=== PATIENT | female | born 1980 | race Asian ===

== ENCOUNTER 2024-07-27 01:28 | Emergency (ER) | payer BC, SELFPAY ==
[2024-07-27] VITALS (8 sets, daily range): BP systolic 98–182; BP diastolic 56–114; PULSE 54–78; RESP 11–19; TEMP 36.3–36.6; O2SAT 93–100; BMI 24.9
--- NOTE | 2024-07-27 01:31 | EKG_ITS ---
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
--- NOTE | 2024-07-27 02:00 | XR_ITS ---
Examination: AP chest single view TECHNIQUE: AP portable semiupright chest single view Date and time: July 27, 2024 0250 hours Comparison November 15, 2023 INDICATIONS: Chest pain radiating to the back today. FINDINGS: Normal heart size. Lungs are clear. Osseous structures are intact IMPRESSION: No active disease
--- NOTE | 2024-07-27 02:27 | PC.NURSE ---
pt resting quietly. appears anxious. states pain 9 out of 10 at the moment. will speak to MD about pain relief options.
--- NOTE | 2024-07-27 02:29 | PD.EDCHEST ---
ED Chest Pain RME/HPI General Chief Complaint: Chest Pain Stated Complaint: CHEST PAIN RADIATES TO BACK Time Seen by Provider: 07/27/24 02:28 Source: patient, RN notes reviewed and old records reviewed Arrival date/time: 07/27/24 01:28 Mode of arrival: ambulatory Limitations: no limitations RME / HPI RME / HPI narrative: 44-year-old with history of seasonal allergies, asthma with no intubations in the past MD complaint: chest pain (11 PM so far it) Onset (ago): hour(s) (4 hours a) Pain location: epigastric Severity: mild Severity scale (1-10): 2 Quality: sharp Pain radiation: back Relieving factors: leaning forward Exacerbating factors: supine Context: other (No new meds, immobilization, recent travel, or new medications. No history of DVT or pulmonary embolism.) Associated symptoms: nausea and cough (Dry cough, nasal congestion, nasal discharge clear any) Treatments prior to arrival chest pain: other (11 PM took Tums.-, 1115 took Tylenol with no relief.) Related Data On Oral Contraceptives: No Home Medications ?Medication ?Instructions ?Recorded ?Confirmed docusate sodium 100 mg capsule 100 mg PO QDAY 05/12/18 05/12/18 (Colace) vitamins-iron fumarate 27 1 tab PO QDAY 05/12/18 05/12/18 mg iron-folic acid 0.8 mg tablet ( Vitamin) Previous Rx's ?Medication ?Instructions ?Recorded famotidine 20 mg tablet (Pepcid) 20 mg PO QDAY #30 tabs 10/24/20 ondansetron HCl 4 mg tablet 4 mg PO Q8H PRN nausea and 10/24/20 (Zofran) vomiting #20 tabs pantoprazole 40 mg tablet,delayed 40 mg PO QDAY #30 tabs 11/15/23 release (Protonix) Allergies Allergy/AdvReac Type Severity Reaction Status Date / Time No Known Allergies Allergy Verified 03/14/22 04:01 Review of Systems Review of Systems Systems Reviewed: All systems reviewed, normal except as documented ED Exam General Limitations: Present no limitations Course Course Course Narrative: Patient placed in the bed. Morphine is given. All labs are sent. Orders Category Date Time Status Bedside COVID-19 Antigen Test NOW Care 07/27/24 02:04 Active Bedside Influenza A&B Antigen Test NOW Care 07/27/24 02:04 Completed EKG (ED ONLY) *Do not use* NOW Care 07/27/24 01:32 Completed EKG (ED Only) Stat Exams 07/27/24 01:31 Draft XR chest 1V portable Stat Exams 07/27/24 02:00 Ordered CBC Stat Lab 07/27/24 02:00 Ordered CMP [Comprehensive Metabolic Panel] Stat Lab 07/27/24 02:00 Ordered Drug Screen,Urine Stat Lab 07/27/24 02:01 Ordered HCG,Qualitative Serum Stat Lab 07/27/24 02:00 Ordered Troponin I Stat Lab 07/27/24 02:00 Ordered UA [Urinalysis] Stat Lab 07/27/24 02:01 Ordered Vital Signs Vital signs: Vital Signs Temperature 97.9 F 07/27/24 01:39 Pulse Rate 65 07/27/24 01:39 Respiratory Rate 19 07/27/24 01:39 Blood Pressure 182/114 H 07/27/24 01:39 Pulse Oximetry (%) 100 07/27/24 01:39 Oxygen Delivery Method Room Air 07/27/24 01:39 Procedures -ED EKG Interpretation #1: Date of EK07/27/24 Time of EK:37 Interpretation: Interpreted by me Additional EKG comment: Sinus rhythm. Q wave in V2. No ST elevations or depressions. Rate 69, [place] interval 133. QTc is 407. No ST elevation CO. Chest Pain MDM Narrative MDM Narrative:: Differential diagnosis: Chest pain, pulmonary embolism, hypertensive urgency versus emergency, GERD, gallbladder disease, non-STEMI. Heart score: Discharge Plan Prescriptions/Referrals Prescriptions/Med Rec: No Action famotidine [Pepcid] 20 mg tablet 20 mg PO QDAY Qty: 30 0RF ondansetron HCl [Zofran] 4 mg tablet 4 mg PO Q8H PRN (Reason: nausea and vomiting) Qty: 20 0RF docusate sodium [Colace] 100 mg Capsule 100 mg PO QDAY Vitamin 27 mg iron- 0.8 mg Tablet 1 tab PO QDAY pantoprazole [Protonix] 40 mg tablet,delayed release (DR/EC) 40 mg PO QDAY Qty: 30 0RF Patient/Caregiver Discharge Instructions Print Language: Indian
--- NOTE | 2024-07-27 02:41 | XR_ITS ---
Examination: Abdomen sonogram, Limited Date and time of exam: July 27, 2024 0255 hours INDICATIONS: Epigastric pain beginning 11:00 PM last night Technique: Real-time vazquez scale transabdominal sonographic images of the upper abdomen obtained. Findings: Cholelithiasis, normal gallbladder wall Normal common bile ducts are 0.4 cm Pancreatic head 2.5 cm Liver 14.8 cm smooth contour and no focal liver lesions Normal hepatopedal portal venous flow Patent IVC IMPRESSION: Cholelithiasis
[2024-07-27 03:03] LABS: Basophils # (Auto) 0.1 Thou/mm3 (0.0-0.2); Basophils % (Auto) 1 % (0-2.5); Eosinophils # (Auto) 0.3 Thou/mm3 (0.0-0.5); Eosinophils % (Auto) 3 % (0-10); Hematocrit 37.2 % (36.0-46.0); Immature Granulocytes % (Auto) 0 % (0-0); Immature Granulocytes Auto 0.02 Thou/mm3 (0.00-0.00); Lymphocytes # (Auto) 3.4 Thou/mm3 (1.0-4.8); Lymphocytes % (Auto) 32 % (10-50); Mean Corpuscular HGB Conc 32.3 g/dl (31.0-37.0); Mean Corpuscular Hemoglobin 21.9 pg (25.0-35.0); Mean Corpuscular Volume 68 fL (80-100); Monocytes # (Auto) 0.8 Thou/mm3 (0.0-0.8); Monocytes % (Auto) 7 % (0-12); Neutrophils % (Auto) 57 % (37-80); Nucleated Red Blood Cell % 0 /100 WBC (0); Platelet Count 268 Thou/mm3 (140-440); RDW Standard Deviation 35.1 fL (36.4-46.3); Red Blood Count 5.48 Miln/mm3 (4.00-5.20); White Blood Count 10.6 Thou/mm3 (3.6-11.0)
[2024-07-27 03:23] LABS: D-Dimer < 250 ng/mL (<600)
[2024-07-27 03:30] LABS: Path Review Blood Smear Sent to Pathologist
[2024-07-27] MEDS: ONDANSETRON INJ 2 MG/ML INJ 2 ML 4 MG IVP (03:46)
[2024-07-27] MEDS: MORPHINE SULF INJ 10 MG/ML VIAL 4 MG IVP (03:47)
[2024-07-27] MEDS: ASPIRIN 81 MG CHEW 324 MG PO (03:48)
[2024-07-27 03:53] LABS: Alanine Aminotransferase 40 U/L (10-49); Albumin, Serum 4.4 gm/dL (3.5-5.0); Albumin/Globulin Ratio 1.3 (1.2-2.2); Alkaline Phosphatase 61 U/L (46-116); Anion Gap 9 (7-16); Aspartate Amino Transferase 26 U/L (0-34); BUN/Creatinine Ratio 10 Ratio (12-20); Bilirubin,Total 0.4 mg/dL (0.3-1.2); Blood Urea Nitrogen 9 mg/dL (9-23); Calcium 9.9 mg/dL (8.3-10.6); Calcium (Corrected) 9.9 mg/dL (8.5-10.1); Carbon Dioxide 27.2 mMol/L (20.0-31.0); Chloride 102 mMol/L (98-107); Creatinine (Component) 0.9 mg/dL (0.6-1.3); Estimated Creatinine Clearance 74.5 mL/min (>60); Globulin 3.3 gm/dL (2.3-3.5); Glucose 111 mg/dL (74-106); Osmolality,Calculated 275 (275-295); Potassium 3.7 mMol/L (3.4-5.1); Sodium 138 mMol/L (136-145); Total Protein 7.7 gm/dL (5.7-8.2); Troponin I < 0.002 ng/mL (0.0-0.045); eGFR > 60 See Note
[2024-07-27 04:33] LABS: Collection Type, Urine Clean Catch
--- NOTE | 2024-07-27 04:33 | PRELIM_ITS ---
Right upper quadrant abdominal ultrasound with Doppler and wave Doppler spectral analysis. July 27, 2024 at 0255 hours Clinical history:Epigastric pain. Technique: Grayscale and color flow images of the right upper quadrant are provided. Hepatic and portal veins were also imaged with color flow images. Comparison: No prior study is available for comparison. Findings: The liver is normal in echogenicity. No intrahepatic biliary ductal dilatation. Gallstones. No gallbladder wall thickening or pericholecystic fluid is demonstrated. The common bile duct is normal in caliber at 0.4 cm. The pancreas is unremarkable to the extent visualized. The portal vein is patent with hepatopetal flow normal wave Doppler spectral analysis. The hepatic veins are patent with normal wave Doppler spectral analysis. The inferior vena cava is patent with normal wave Doppler spectral analysis. Terry sign is not available at the time of this report. Impression: Gallstones without evidence of acute cholecystitis. Report Electronically Signed By: eHlio Davenport 07/27/2024 4:32:52 AM [EST]
[2024-07-27 04:39] LABS: Bilirubin,Urine Negative (Negative); Blood,Urine 1+ (Negative); Clarity,Urine Clear (Clear/Hazy); Color,Urine Lt-Yellow (Lt Yel-Yel); Glucose, Urine Negative (Negative); Ketones,Urine Negative (Negative); Leukocyte Esterase,Urine Positive (Negative); Nitrite,Urine Negative (Negative); Protein,Urine Negative (Neg - Trace); RBC,Urine 21 /hpf (0-3); Specific Gravity,Urine 1.025 (1.001-1.035); Squamous Epithelial Cell,Urine 5 /hpf (0-5); Urobilinogen,Urine Negative mg/dL (0.0-1.0); WBC,Urine 14 /hpf (0-5)
[2024-07-27 05:05] LABS: HCG,Qualitative Serum Negative
[2024-07-27 05:06] LABS: Amphetamine/Methamp Scrn,U Negative (Negative); Barbiturate Screen,Urine Negative (Negative); Benzodiazepines Screen,Urine Negative (Negative); Benzoylecgonine Screen, Ur Negative (Negative); Fentanyl Screen,Urine Negative (Negative); Opiate Screen,Urine Positive (Negative); THC Screen,Urine Negative (Negative)
[2024-07-27] MEDS: cefTRIAXone/D5w 1gm IV premix 1 GM/50 ML BAG IV (06:18)
--- NOTE | 2024-07-27 06:27 | PD.EDADDENDU ---
Emergency Room Addendum Addendum Narrative: 0600: Care assumed from Dr. Cool, the previous shift emergency physician. Past medical, surgical, social and family history reviewed. Vitals and home medications reviewed. I will assume the care of the patient at this time, pending delta trop and final disposition. Please refer to the emergency department record for history and examination from initial visit.? Physical exam by me shows patient under no acute distress at this time. 44 year old female with past medical history significant for asthma presents to the Emergency Department with complaint of chest pain, nonspecific. Delta trop came back negative, patient will be discharged to follow up with their PCP in 2 days. 0750: Patient remains clinically stable throughout the emergency department visit. Re-assessment at the time of disposition demonstrates that the patient is in no acute distress. We reviewed all the results, analysis, and treatment plans. Patient is amenable to discharge. Strict return precautions were outlined. Patient was discharged in stable condition. Diagnoses: -Nonspecific chest pain -History of asthma
[2024-07-27 06:32] LABS: Troponin I < 0.020 ng/mL (0.0-0.045)
[2024-07-27] MEDS: KETOROLAC INJ 30 MG/ML VIAL 15 MG IVP (06:43)
== END 2024-07-27 08:12 | disposition home or self-care (01) ==
PROVIDERS: Emergency Provider Emergency Medicine; PCP Family Medicine
DX: R07.89 Other chest pain (principal); J45.909 Unspecified asthma, uncomplicated; K80.20 Calculus of gallbladder without cholecystitis without obstruction
CPT/HCPCS: 36415; 71045; 76705; 80053; 80307; 81001; 84484; 84703; 85025; 85379; 87400; 87811; 93005; 96365; 96375; 99284; J0696; J1885; J2270; J2405; A9270

== ENCOUNTER 2024-10-14 20:15 | Emergency (ER) | payer BC, SELFPAY ==
[2024-10-14 21:10] VITALS: BP 169/94; PULSE 65; RESP 18; TEMP 36.9; O2SAT 96; BMI 24.9
--- NOTE | 2024-10-14 21:18 | XR_ITS ---
Examination: CT abdomen and pelvis without contrast. Coronal 3-D reconstructions. Sagittal 2-D reconstructions. Date and time of exam:October 14, 2024 1027 hours INDICATIONS: Left-sided flank pain beginning 2 days ago. CTDI: vol (mGy): 6.38 DLP: (mGycm): 725 Technique: Axial images of the abdomen have been obtained, 3 mm slice thickness Intravenous contrast material has not been administered. Low dose protocols were performed. One or more of the following dose reduction techniques were used; automated exposure control, adjustment of the mA and/or KV according to patient size, use of iterative reconstruction technique. Findings: No focal liver or splenic lesion Contracted gallbladder No pancreatic mass Thickening of the left adrenal gland No renal or ureteral calculi, no hydronephrosis 19 mm fat-containing umbilical hernia Normal appendix No bowel obstruction Anteverted uterus Urinary bladder wall thickening up to 6 mm Mild osteopenia IMPRESSION: No renal or ureteral calculi, no hydronephrosis. Normal appendix Cystitis pattern
--- NOTE | 2024-10-14 21:27 | PD.EDBACK ---
ED Back Injury Pain RME/HPI General Chief Complaint: Abdominal Pain Stated Complaint: LEFT FLANK PAIN Time Seen by Provider: 10/14/24 21:17 Arrival date/time: 10/14/24 20:15 44F with history of asthma presents to ED with 2 days of L flank pain. Patient denies dysuria and fall/trauma. Limitations: no limitations Related Data Home Medications ?Medication ?Instructions ?Recorded ?Confirmed docusate sodium 100 mg capsule 100 mg PO QDAY 05/12/18 05/12/18 (Colace) vitamins-iron fumarate 27 1 tab PO QDAY 05/12/18 05/12/18 mg iron-folic acid 0.8 mg tablet ( Vitamin) Previous Rx's ?Medication ?Instructions ?Recorded famotidine 20 mg tablet (Pepcid) 20 mg PO QDAY #30 tabs 10/24/20 ondansetron HCl 4 mg tablet 4 mg PO Q8H PRN nausea and 10/24/20 (Zofran) vomiting #20 tabs pantoprazole 40 mg tablet,delayed 40 mg PO QDAY #30 tabs 11/15/23 release (Protonix) cefuroxime axetil 500 mg tablet 500 mg PO BID 7 days #14 tabs 10/15/24 Allergies Allergy/AdvReac Type Severity Reaction Status Date / Time No Known Allergies Allergy Verified 10/14/24 20:16 Review of Systems Review of Systems Systems Reviewed: All systems reviewed, normal except as documented Constitutional Constitutional: Reports system reviewed and no additional complaints, except as documented, Denies fever(s) and Denies headache(s) ENT Ears, Nose, Mouth, and Throat: Denies disequilibrium and Denies headache(s) Cardiovascular Cardiovascular: Reports system reviewed and no additional complaints, except as documented, Denies chest pain and Denies dyspnea Respiratory Respiratory: Reports system reviewed and no additional complaints, except as documented, Denies cough and Denies dyspnea Gastrointestinal Gastrointestinal: Reports system reviewed and no additional complaints, except as documented, Denies abdominal pain, Denies nausea and Denies vomiting Genitourinary Genitourinary: Reports abnormal menses and Reports flank pain Neurologic Neurologic: Reports system reviewed and no additional complaints, except as documented, Denies confusion, Denies disequilibrium and Denies headache(s) Psychiatric Psychiatric: Denies confusion Past Medical History Past Medical History NEUROLOGIC: Negative Neurological Disorders CARDIAC: Negative Cardiac Disorders or Congestive Heart Failure RESPIRATORY: Positive Asthma; Negative Chronic Obstructive Pulmonary Disease (COPD) GASTROINTESTINAL: Positive Gastroesophageal Reflux Disease; Negative Gastrointestinal Disorders, Hepatitis or Colorectal Cancer GENITOURINARY: Negative Genitourinary Disorders, Renal Disease or Prostate Cancer REPRODUCTIVE: Negative Breast Cancer or Testicular Cancer MUSCULOSKELETAL: Negative Musculoskeletal Disorders or Bone Cancer ENDOCRINE: Negative Endocrine Disorders, Diabetes Mellitus Type 1 or Diabetes Mellitus Type 2 HEMATOLOGIC: Negative Blood Disorders OTHER HISTORY: Negative Hospitalization, Autoimmune Disease, Down Syndrome, Developmental Delay, Shingles, Falls, Blood Transfusions, Blood Transfusion Reaction, Anesthesia Reactions, Organ Transplant, Chemotherapy, Radiation Therapy, Hyperbaric Therapy, MRSA, VRSA, Vancomycin-Resistant Enterococci, Human Immunodeficiency Virus (HIV), Chicken Pox, Measles, Mumps, Rubella ([place] Measles), Pertussis, Clostridium Difficile, Breast Cancer, Cervical Cancer, Colorectal Cancer, Lung Cancer, Ovarian Cancer, Prostate Cancer or Testicular Cancer Family History FAMILY HISTORY: Positive Family Cardiac Disorders; Negative Family Psychiatric Problems, Family Respiratory Disorders, Family Gastrointestinal Problems, Family Cancer, Family Surgery or Family Anesthesia Reaction Surgical History SURGICAL: Negative Endocrine Surgery, Section or Organ Transplant Social History SMOKING STATUS: Never smoker SUBSTANCE USE: does not use ED Exam General Limitations: Present no limitations General appearance: Present alert and in no apparent distress Head Head exam: Present atraumatic Eye Eye exam: Present normal appearance, PERRL and EOMI ENT ENT exam: Present normal exam, normal oropharynx and mucous membranes moist Neck Neck exam: Present normal inspection, full ROM and trachea midline Chest Chest inspection: Present normal inspection and symmetric chest wall rise Respiratory Respiratory exam: Present normal lung sounds bilaterally Cardiovascular Cardiovascular exam: Present regular rate, normal rhythm and normal heart sounds Abdominal Exam Abdominal exam: Present soft and normal bowel sounds Extremities Exam Extremities exam: Present normal inspection and full ROM Back Exam Back exam: Present full ROM and CVA tenderness (L) Neurological Exam Neurological exam: Present alert, oriented X3 and CN II-XII intact Psychiatric Psychiatric exam: Present normal affect and normal mood Skin Skin exam: Present warm, dry, intact and normal color Course Quality Measures none Orders Category Date Time Status CT abdomen pelvis wo con Stat Exams 10/14/24 21:18 Completed CBC Stat Lab 10/14/24 22:17 Completed CMP [Comprehensive Metabolic Panel] Stat Lab 10/14/24 22:17 Completed HCG Qualitative,Urine Stat Lab 10/14/24 21:40 Completed Lipase Stat Lab 10/14/24 22:17 Completed Urinalysis, C/S if Indicated Stat Lab 10/14/24 21:40 Completed Urine Culture Stat Lab 10/14/24 21:40 Received [id number] [Rocephin] 1,000 mg Med 10/15/24 00:09 Discontinued Lidocaine 1% 20 ml [Xylocaine 1% 20 ML] 2.1 ml IM X1 Vital Signs Vital signs: Vital Signs Temperature 98.5 F 10/14/24 21:10 Pulse Rate 65 10/14/24 21:10 Respiratory Rate 18 10/14/24 21:10 Blood Pressure 169/94 H 10/14/24 21:10 Pulse Oximetry (%) 96 10/14/24 21:10 Oxygen Delivery Method Room Air 10/14/24 21:10 O2 at 96% on RA and WNLs Back Pain / Injury MDM Narrative MDM Narrative:: 44F with history of asthma presents to ED with 2 days of L flank pain. Patient denies dysuria and fall/trauma. Physical exam reveals some L CVA tenderness. Patient is afebrile, calm, and alert. CT no kidney stone. No leukocytosis. CMP unremarkable. UA suggests UTI. Meds and consumer credit counselor given. Patient data External records reviewed:: [facility] previous records Clinical information provided by:: patient Social determinants that could affect healthcare access:: none Patient has the following chronic illnesses:: none How is presenting disease/condition affected by chronic disease/condition?: no chronic disease Evaluation data The following diagnostics were reviewed and interpreted by me:: lab results and radiology exam(s) Lab and/or radiology exams considered but not ordered:: ordered Interpretation Summary: above Medications / Prescriptions Medications or Prescriptions considered but not ordered:: ordered Medication administrations:: Medication Administration History Discontinued Medications Ceftriaxone Sodium 1,000 mg/ (Lidocaine HCl 2.1 ml) 0 mg IM X1 ONE Stop: 10/15/24 00:10 Last Admin: 10/15/24 00:25 Dose: 1,000 mg Documented By: EF above Consultations Consultation(s) initiated? (list below): No Diagnosis Differential diagnosis back pain/injury: lumbar radiculopathy, sciatica, strain of lumbar region, renal colic, pyelonephritis, thoracic back pain, AAA and discitis Most likely diagnosis given after review of the tests above:: UTI Admission Indicated Admission indicated?: not indicated Admission Request Was there a request for admission?: No Disposition Plan Disposition Plan: Discharge Discharge Attestation Discharge Attestation: The patient and all family members were given an opportunity to ask questions and understood the discharge instructions. Discharge instructions specifically effects, indications for sooner follow up or return to the emergency department, and the expected course of current diagnosis. Patient condition: Stable Discharge Plan Plan Patient Disposition: HOME (Self Care) Discharge Disposition comment: Stable Prescriptions/Referrals Prescriptions/Med Rec: New cefuroxime axetil 500 mg tablet 500 mg PO BID 7 Days Qty: 14 0RF No Action famotidine [Pepcid] 20 mg tablet 20 mg PO QDAY Qty: 30 0RF ondansetron HCl [Zofran] 4 mg tablet 4 mg PO Q8H PRN (Reason: nausea and vomiting) Qty: 20 0RF docusate sodium [Colace] 100 mg Capsule 100 mg PO QDAY Vitamin 27 mg iron- 0.8 mg Tablet 1 tab PO QDAY pantoprazole [Protonix] 40 mg tablet,delayed release (DR/EC) 40 mg PO QDAY Qty: 30 0RF Referrals: Olga Yu MD [Primary Care Provider] - In 1 week Problem List Clinical Impression: UTI (urinary tract infection) Patient/Caregiver Discharge Instructions Education Materials: ED CYSTITIS Female Adult Additional Instructions: Please follow-up with PCP within 24-48 hours and return immediately if symptoms worsen. NSAIDs like ibuprofen tend to work better for this type of pain. Print Language: Maori Stand Alone Forms: Work/School Release, Patient Portal Info Letter PA/ANNIE Supervising Physician TONEY/ANNIE Supervising Physician: Dr. Marcial
[2024-10-14 22:14] LABS: Collection Type, Urine Clean Catch
[2024-10-14 22:19] LABS: Bilirubin,Urine Negative (Negative); Blood,Urine Trace (Negative); Clarity,Urine Clear (Clear/Hazy); Color,Urine Lt-Yellow (Lt Yel-Yel); Glucose, Urine Negative (Negative); Ketones,Urine Negative (Negative); Leukocyte Esterase,Urine Positive (Negative); Nitrite,Urine Negative (Negative); PH,Urine 6.5 (5.0-7.0); Protein,Urine Negative (Neg - Trace); RBC,Urine 4 /hpf (0-3); Specific Gravity,Urine 1.018 (1.001-1.035); Squamous Epithelial Cell,Urine 7 /hpf (0-5); Urobilinogen,Urine Negative mg/dL (0.0-1.0); WBC,Urine 25 /hpf (0-5)
[2024-10-14 22:40] LABS: Basophils # (Auto) 0.1 Thou/mm3 (0.0-0.2); Basophils % (Auto) 1 % (0-2.5); Eosinophils # (Auto) 0.3 Thou/mm3 (0.0-0.5); Eosinophils % (Auto) 2 % (0-10); Hematocrit 41.9 % (36.0-46.0); Hemoglobin 12.8 g/dL (12.0-16.0); Immature Granulocytes Auto 0.03 Thou/mm3 (0.00-0.00); Lymphocytes # (Auto) 3.0 Thou/mm3 (1.0-4.8); Lymphocytes % (Auto) 27 % (10-50); Mean Corpuscular HGB Conc 30.5 g/dl (31.0-37.0); Mean Corpuscular Hemoglobin 21.5 pg (25.0-35.0); Mean Corpuscular Volume 70 fL (80-100); Monocytes # (Auto) 0.7 Thou/mm3 (0.0-0.8); Monocytes % (Auto) 6 % (0-12); Neutrophils # (Auto) 7.1 Thou/mm3 (1.8-7.7); Neutrophils % (Auto) 64 % (37-80); Nucleated Red Blood Cell # 0.00 Thou/mm3 (0.00-0.00); Nucleated Red Blood Cell % 0 /100 WBC (0); Platelet Count 359 Thou/mm3 (140-440); RDW Standard Deviation 37.0 fL (36.4-46.3); Red Blood Count 5.95 Miln/mm3 (4.00-5.20); White Blood Count 11.1 Thou/mm3 (3.6-11.0)
[2024-10-14 22:42] LABS: Culture Indicated,Urine Yes
[2024-10-14 22:52] LABS: HCG Qualitative,Urine Negative
[2024-10-14 23:18] LABS: Alanine Aminotransferase 62 U/L (10-49); Albumin, Serum 5.0 gm/dL (3.5-5.0); Albumin/Globulin Ratio 1.5 (1.2-2.2); Alkaline Phosphatase 68 U/L (46-116); Anion Gap 9 (7-16); Aspartate Amino Transferase 77 U/L (0-34); BUN/Creatinine Ratio 13 Ratio (12-20); Bilirubin,Total 0.4 mg/dL (0.3-1.2); Blood Urea Nitrogen 10 mg/dL (9-23); Calcium 10.3 mg/dL (8.3-10.6); Calcium (Corrected) 10.3 mg/dL (8.5-10.1); Carbon Dioxide 25.7 mMol/L (20.0-31.0); Chloride 105 mMol/L (98-107); Creatinine (Component) 0.8 mg/dL (0.6-1.3); Estimated Creatinine Clearance 83.8 mL/min (>60); Globulin 3.3 gm/dL (2.3-3.5); Glucose 92 mg/dL (74-106); Osmolality,Calculated 278 (275-295); Potassium 3.9 mMol/L (3.4-5.1); Sodium 140 mMol/L (136-145); Total Protein 8.3 gm/dL (5.7-8.2); eGFR > 60 See Note
[2024-10-14 23:53] LABS: Lipase 26 U/L (12-53)
[2024-10-15] MEDS: cefTRIAXone 1,000 MG, LIDOCAINE 1% 20 ML 2.1 ML IM (00:25)
[2024-10-15 00:33] VITALS: BP 159/100; PULSE 77; RESP 16; TEMP 36.8; O2SAT 99
== END 2024-10-15 00:34 | disposition home or self-care (01) ==
PROVIDERS: Physician Assistant; Emergency Provider Emergency Medicine; PCP Family Medicine
DX: N39.0 Urinary tract infection, site not specified (principal); J45.909 Unspecified asthma, uncomplicated
CPT/HCPCS: 36415; 74176; 80053; 81001; 81025; 83690; 85025; 87086; 96372; 99283; J0696; J3490

== ENCOUNTER → 2024-12-08 | Outpatient (CLI) | payer BC, SELFPAY ==
[2024-12-08 15:07] LABS: Collection Type, Urine Clean Catch
[2024-12-08 16:58] LABS: Bacteria,Urine Rare; Bilirubin,Urine Negative (Negative); Blood,Urine Negative (Negative); Clarity,Urine Clear (Clear/Hazy); Color,Urine Colorless (Lt Yel-Yel); Glucose, Urine Negative (Negative); Ketones,Urine Negative (Negative); Nitrite,Urine Negative (Negative); PH,Urine 7.0 (5.0-7.0); Protein,Urine Negative (Neg - Trace); RBC,Urine 1 /hpf (0-3); Specific Gravity,Urine 1.007 (1.001-1.035); Squamous Epithelial Cell,Urine 8 /hpf (0-5); Urobilinogen,Urine Negative mg/dL (0.0-1.0); WBC,Urine 1 /hpf (0-5)
[2024-12-08 17:09] LABS: Leukocyte Esterase,Urine Negative (Negative)
== END | disposition home or self-care (01) ==
LOC: SLDO 14:57
PROVIDERS: PCP Family Medicine; Referring Provider Family Medicine; Visit Provider Family Medicine
DX: N30.00 Acute cystitis without hematuria (principal)
CPT/HCPCS: 81001; 87086

== ENCOUNTER → 2024-12-12 | Outpatient (CLI) | payer BC, SELFPAY ==
[2024-12-12 10:00] LABS: Basophils # (Auto) 0.1 Thou/mm3 (0.0-0.2); Basophils % (Auto) 1 % (0-2.5); Eosinophils # (Auto) 0.3 Thou/mm3 (0.0-0.5); Eosinophils % (Auto) 3 % (0-10); Hematocrit 37.9 % (36.0-46.0); Hemoglobin 12.0 g/dL (12.0-16.0); Immature Granulocytes Auto 0.03 Thou/mm3 (0.00-0.00); Lymphocytes # (Auto) 2.5 Thou/mm3 (1.0-4.8); Lymphocytes % (Auto) 28 % (10-50); Mean Corpuscular HGB Conc 31.7 g/dl (31.0-37.0); Mean Corpuscular Hemoglobin 22.0 pg (25.0-35.0); Mean Corpuscular Volume 69 fL (80-100); Monocytes # (Auto) 0.7 Thou/mm3 (0.0-0.8); Monocytes % (Auto) 8 % (0-12); Neutrophils # (Auto) 5.3 Thou/mm3 (1.8-7.7); Neutrophils % (Auto) 60 % (37-80); Nucleated Red Blood Cell # 0.00 Thou/mm3 (0.00-0.00); Nucleated Red Blood Cell % 0 /100 WBC (0); Platelet Count 351 Thou/mm3 (140-440); RDW Standard Deviation 35.2 fL (36.4-46.3); Red Blood Count 5.46 Miln/mm3 (4.00-5.20); White Blood Count 9.0 Thou/mm3 (3.6-11.0)
[2024-12-12 10:21] LABS: Alanine Aminotransferase 30 U/L (10-49); Albumin, Serum 4.7 gm/dL (3.5-5.0); Albumin/Globulin Ratio 1.3 (1.2-2.2); Alkaline Phosphatase 60 U/L (46-116); Anion Gap 8 (7-16); Aspartate Amino Transferase 25 U/L (0-34); BUN/Creatinine Ratio 11 Ratio (12-20); Bilirubin,Total 0.8 mg/dL (0.3-1.2); Blood Urea Nitrogen 9 mg/dL (9-23); Calcium 9.5 mg/dL (8.3-10.6); Calcium (Corrected) 9.5 mg/dL (8.5-10.1); Carbon Dioxide 27.6 mMol/L (20.0-31.0); Chloride 104 mMol/L (98-107); Creatinine (Component) 0.8 mg/dL (0.6-1.3); Globulin 3.6 gm/dL (2.3-3.5); Glucose 88 mg/dL (74-106); Osmolality,Calculated 277 (275-295); Potassium 3.6 mMol/L (3.4-5.1); Sodium 140 mMol/L (136-145); Total Protein 8.3 gm/dL (5.7-8.2); eGFR > 60 See Note
[2024-12-12 10:22] LABS: Glucose Estimated Average 97 mg/dL (80-131); Hemoglobin A1C 5.0 % Hgb (4.8-6.0)
== END | disposition home or self-care (01) ==
LOC: COPL 09:19
PROVIDERS: PCP Family Medicine; Referring Provider Family Medicine; Visit Provider Family Medicine
DX: Z00.00 Encounter for general adult medical examination without abnormal findings (principal); O24.419 Gestational diabetes mellitus in pregnancy, unspecified control
CPT/HCPCS: 36415; 80053; 83036; 85025